=== PATIENT | male | born 1960 | race Two or more races ===

== ENCOUNTER 2023-08-23 04:18 | Emergency (ER) | payer OTHER ==
[~2023-08-23] VITALS: Ht 182.9 cm; Wt 100.0 kg
[2023-08-23 07:29] VITALS: BP 138/82; PULSE 85; RESP 18; TEMP 98.3; O2SAT 98
== END 2023-08-23 07:40 ==
LOC: EDBD 04:18 → EDSEX 04:18 → EEVIPCON 04:18 → ER 04:18
DX: G89.29 Other chronic pain (principal); M25.511 Pain in right shoulder; E11.9 Type 2 diabetes mellitus without complications
CPT/HCPCS: 82962; 93005

== ENCOUNTER 2025-01-10 09:14 | Outpatient (CLI) | payer OTHER ==
--- NOTE | 2025-01-10 11:11 | DVH ---
CLINICAL INDICATION: OSTEOARTHITIS RIGHT SHOULDER TECHNIQUE: Noncontrast CT of the right shoulder was performed. Sagittal and coronal reformatted image s are provided. COMPARISON: None CT Dose: CTDI volume is 24.81 mGy. Dose-length product is 650.13 mGy*cm FINDINGS: No fracture or dislocation. Glenohumeral joint space narrowing with osteophytes. There is a cromioclavicular joint space narrowing with osteophytes. There is no abnormal alignment of the joint spaces. Soft tissues are unremarkable. Multilevel cervical spondylosis. IMPRESSION: 1. Glenohumeral and acromioclavicular joint arthrosis. 2. No acute fracture of the right shoulder. All CT scans at this medical facility are performed using dose modulation techniques as appropriate t o a performed exam including the following: Automated exposure control was utilized; adjustment of th e MA and/or KV according to patient size; and use of iterative reconstruction technique.
== END 2025-01-10 19:31 | disposition home or self-care (01) ==
LOC: EEVIPCON 09:14 → CT 09:14
DX: M19.011 Primary osteoarthritis, right shoulder (principal); M25.711 Osteophyte, right shoulder; M25.811 Other specified joint disorders, right shoulder; M47.812 Spondylosis without myelopathy or radiculopathy, cervical region; M25.511 Pain in right shoulder
CPT/HCPCS: 73200